=== PATIENT | male | born 1990 ===

== ENCOUNTER → 2023-05-06 | Outpatient (CLI) | payer OTHER | END | disposition home or self-care (01) | LOC: LAB 17:42 → LAB SHORT 17:42 | DX: Z51.81 Encounter for therapeutic drug level monitoring (principal); Z79.899 Other long term (current) drug therapy | CPT/HCPCS: G0480 ==

== ENCOUNTER → 2023-10-31 | Outpatient (CLI) | payer OTHER ==
[2023-11-02 09:11] LABS: A/G RATIO 1.6 (1.2-2.2); BILIRUBIN, TOTAL 0.3 mg/dL (0.0-1.2); CALCIUM, SERUM 9.5 mg/dL (8.7-10.2); CREATININE, SERUM 1.04 mg/dL (0.76-1.27); GLOBULIN, TOTAL 2.8 g/dL (1.5-4.5); PROTEIN, TOTAL, SERUM 7.3 g/dL (6.0-8.5)
[2023-11-03 12:51] LABS: HEPATITIS C AB CIA INTERP Negative (Negative); HEPATITIS C ANTIBODY CIA INDEX 0.46 IV
[2023-11-03 14:23] LABS: HIV 1,2 COMBO ANTIGEN/ANTIBODY Negative (Negative)
== END ==
LOC: LAB SHORT 12:00 → LAB 12:00
PROVIDERS: Family Medicine
DX: Z11.59 Encounter for screening for other viral diseases (principal); Z11.4 Encounter for screening for human immunodeficiency virus [HIV]; F90.9 Attention-deficit hyperactivity disorder, unspecified type
CPT/HCPCS: 80053; 84443; 86803; 87389

== ENCOUNTER 2025-08-07 15:23 | Emergency (ER) | payer OTHER ==
[~2025-08-07] VITALS: Ht 185.4 cm; Wt 90.7 kg
[2025-08-07 15:59] VITALS: BP 148/110
[2025-08-07] MEDS ORDERED: Amphetamine Sal20 MG PO (16:11)
== END 2025-08-07 16:56 | disposition home or self-care (01) ==
LOC: ER 15:23
DX: F98.8 Other specified behavioral and emotional disorders with onset usually occurring in childhood and adolescence (principal); Z76.0 Encounter for issue of repeat prescription
CPT/HCPCS: 99281